=== PATIENT | female | born 1985 | race Caucasian/White ===

== ENCOUNTER 2024-11-28 09:22 | Outpatient (AMB) | payer OTHER, SELFPAY ==
[2024-11-28 09:27] VITALS: BP 120/82; BMI 39.7
--- NOTE | 2024-11-28 09:27 | MHC.OFFVIS ---
Vital Signs 11/28/24 09:27 Height 5 ft 3.39 in Weight 226 lb 13.69 oz BMI 39.7 BP 120/82 Blood Pressure Location Rt brachial Position Sitting Intake Visit Reasons: RA Intake Note: Pt presents today For RA. Allergies No Known Allergies Allergy (Verified 11/28/24 09:29) HPI HPI RA: Details: Aunt Joshua accompanies patient during visit. Dedee assist patient with dressing/ADLs. She is experiencing swelling in hands and feet. Pain in feet in the morning is severe that she falls if she does not stretch in bed. Hands are numb. No recent infections. MS 30 minutes - 1 hour. She has difficulty holding things. She has not seen a provider at the [facility] since I left the practice. She was on baricitinib with benefit. She has declined in function since being off of baricitinib. She continues to take Celebrex and duloxetine for fibromyalgia. She has not had further management of fibromyalgia pain control after I increased duloxetine dose from 30 mg to 60 mg. Review of Systems Const All systems reviewed & are unremarkable except as noted in HPI and below Physical Exam Vital Signs: Last Vital Signs BP 120/82 11/28/24 09:27 BMI result Body Mass Index 39.7 Const Other: General: Comfortable CVS: RRR Respiratory: clear to auscultation bilaterally. Good respiratory effort Skin: No lesions seen MSK: Tender to palpate MCPs, PIPs and IPs. Right wrist synovitis present with tenderness on palpation. Bilateral elbows and shoulders tender. Abduction of bilateral shoulders is 90 degrees with limited internal and external rotation. Tender to palpate bilateral ankles and MTPs. Synovitis of bilateral MTPs.. Office Procedures AMB Joint Injection/Aspiration Joint Injection/Aspiration Details: Right wrist Prep: site was prepped using aseptic technique Injected: 20 mg of, Kenalog, with 0.5 mL of and 1% plain lidocaine Procedure: The patient tolerated the procedure well. Postprocedure protocol was discussed with patient. Coding 20867 - Medium joint Procedure code (CPT) selection complete Office Meds lidocaine (PF) 10 mg/mL (1 %) injection solution Performing Provider: Weston Roberts MD [place] [facility] [place] [facility] Administered by: Weston Roberts MD on 11/28/24 12:20 Dose Route Admin Location Dispensed Lot Number Expiration Date [facility] No Experience 5 mg Infiltration 2 mL [id number] [facility] Kenalog 40 mg/mL suspension for injection Performing Provider: Weston Roberts MD Performing [place] [facility] [place] [facility] Administered by: Weston Roberts MD on 11/28/24 12:20 Dose Route Admin Location Dispensed Lot Number Expiration Date [facility] No Experience 20 mg intra-articular 1 mL AP [id number] [facility] Assessment & Plan Assessment & Plan (1) Rheumatoid arthritis: Comment: Rheumatoid arthritis is uncontrolled off of baricitinib. High disease activity. She has developed right wrist synovitis limiting her function with use of her right hand. She is requiring assistance of ADLs due to uncontrolled rheumatoid arthritis. She also has becomes symptomatic with carpal tunnel symptoms likely secondary to inflammatory arthritis causing median neuropathy. In the past her symptoms from carpal tunnel syndrome responded to cortisone injection into the carpal tunnel. She had better control of rheumatoid arthritis when she was on baricitinib. Rheumatology history: Diagnosed November 2019. Seropositive (RF 97.7 and anti CCP antibody >250). Methotrexate po 12/2019-01/2020 then switch to SC but discontinued due to hair loss. Failed treatment with HCQ 01/2020, 06/2021-08/2021. Prednisone and methylprednisolone cause nausea/vomiting/diarrhea. Depo-Medrol IM helps. Remicade 03/2020 DC after 1 induction dose due to anxiety. Failed Humira 04/2020-01/2021, Xeljanz 08/2021-07/2022. She had benefit on Baricitinib 08/2022-01/2024 lost to follow up. Leflunomide discontinued due to shortness of breath, diarrhea and chest pain. Code(s): M06.9 - Rheumatoid arthritis, unspecified Category: Medical Qualifiers: Rheumatoid arthritis location: multiple sites Rheumatoid factor presence: with rheumatoid factor Qualified Code(s): M05.79 - Rheumatoid arthritis with rheumatoid factor of multiple sites without organ or systems involvement Plan: Continue Celebrex 200 mg twice a day Labs for disease and drug monitoring on high-risk medication ordered. After lab results are back, she will need PA for baricitinib 2 mg daily She will be scheduled for nurse visit for Depo-Medrol IM 100 mg Patient received right wrist cortisone injection this visit X-rays ordered of bilateral hands and feet to evaluate for erosive inflammatory arthritis EMG of bilateral upper extremities to evaluate for carpal tunnel syndrome contributing to paraesthesia and hands I will order OT next visit to improve hand strength if she continues to have weakness Medical records reviewed from [facility] Return to clinic in 3 months (2) Fibromyalgia: Comment: On duloxetine. She is running out of her prescriptions. Code(s): M79.7 - Fibromyalgia Category: Medical Plan: I will refill prescriptions duloxetine. Defer future refills to PCP Orders: Orders Alanine Aminotransferase Today Z79.60 - senior living (current) use of unspecified immunomodulators and immunosuppressants Aspartate Amino Transferase Today Z79.60 - rodent exterminator (current) use of unspecified immunomodulators and immunosuppressants Complete Blood Count Auto Diff Today Z79.60 - rodent exterminator (current) use of unspecified immunomodulators and immunosuppressants Creatinine Today Z79.60 - rodent exterminator (current) use of unspecified immunomodulators and immunosuppressants Erythrocyte Sedimentation Rate Today Z79.899 - Other local intermodal truck driver (current) drug therapy Hepatitis B,C Profile Today M06.9 - Rheumatoid arthritis, unspecified T Spot TB Today M06.9 - Rheumatoid arthritis, unspecified Cyclic Citrullinated Peptide Today M06.9 - Rheumatoid arthritis, unspecified Rheumatoid Factor Today M06.9 - Rheumatoid arthritis, unspecified XR hand LT min 3V Today M06.9 - Rheumatoid arthritis, unspecified XR hand RT min 3V Today M06.9 - Rheumatoid arthritis, unspecified C Reactive Protein Today Z79.899 - Other local intermodal truck driver (current) drug therapy XR foot RT min 3V Today M06.9 - Rheumatoid arthritis, unspecified XR foot LT min 3V Today M06.9 - Rheumatoid arthritis, unspecified NE nerve conduction velocity Today M06.9 - Rheumatoid arthritis, unspecified AMB Joint Injection/Aspiration Today M06.9 - Rheumatoid arthritis, unspecified Coding Level of Care Code Est Pt Level 5 (64581) Complex EM visit Add On G2211 Diagnoses Rheumatoid arthritis involving multiple sites with positive rheumatoid factor M05.79 Rheumatoid arthritis location: multiple sites Rheumatoid factor presence: with rheumatoid factor Fibromyalgia M79.7 CPT Codes Coding - 78552 Medium joint: 06912 - Medium joint ([id number]) Time Spent (min) 40
--- OUTSIDE RECORDS SUMMARY | 2024-11-28 10:25 | XMS_ITS | Clinical Summary ---
Author Organization [facility] ity Address [address] [place] [address] Care Team Providers Care Step Down Specialist Name Role Phone Unavailable Primary Care Provider Unavailabl e Social History Tobacco Use Types Packs/Day Years Used Date Smoking Tobacco: Light Smoker Smokeless Tobacco: Never Comments Unknown Sex and Gender Information Value Date Recorded Sex Assigned at Not on file Legal Sex Female 3:09 PM EST Gender Identity Not on file Sexual Orientation Not on file Obstetrics History Last Filed Vital Signs Vital Sign Reading Time Taken Comments Blood Pressure 116/83 04/20/2022 10:21 AM EDT Pulse 103 04/20/2022 10:21 AM EDT Temperature - - Respiratory Rate - - Oxygen Saturation - - Inhaled Oxygen Concentration - - Weight 103 kg (226 lb) 10/04/2022 12:44 PM EST Height 158.8 cm (5' 2.5 ) 04/20/2022 10:21 AM ED T Body Mass Index 40.68 04/20/2022 10:21 AM EDT Plan of Treatment Health Maintenance Due Date Last Done Comments COVID-19 Vaccine (#1) 1990 DTaP,Tdap,and Td Vaccines (1 - Tdap) 2004 Hepatitis B Vaccines (1 of 3 - 19+ 3-dose series) 2004 Pneumococcal Vaccine: Pediatrics (0 to 5 Years) and At-Risk Patients (6 to 64 Years) (1 of 2 - PCV) 2004 Cervical Cancer Screening: Pap Smear 2006 Depression Screening 08/08/2022 HIV Screening 08/08/2022 Hepatitis C Screening 08/08/2022 Social Influencers of Health Screening 08/08/2022 Influenza Vaccine (#1) 2024 9, 09/25/2018, 06/06/2014, Additional history exists HIB Vaccines Aged Out No longer eligi ble based on patient's age to complete this topic HPV Vaccines Aged Out No longer eligi ble based on patient's age to complete this topic Hepatitis A Vaccines Aged Out No long er eligible based on patient's age to complete this topic IPV Vaccines Aged Out No longer eligi ble based on patient's age to complete this topic MMR Vaccines Aged Out No longer eligi ble based on patient's age to complete this topic Meningococcal ACWY Vaccine Aged Out N o longer eligible based on patient's age to complete this topic Meningococcal B Vacine Aged Out No lo nger eligible based on patient's age to complete this topic RSV Immunization Patients Under 20 months Aged Out No longer eligible based on patient's age to complete this topic Varicella Vaccines Aged Out No longer eligible based on patient's age to complete this topic
== END 2024-11-28 10:39 | disposition home or self-care (01) ==
LOC: HO.RHES 09:22
PROVIDERS: PCP Internal Medicine Rheumatology; Visit Provider Internal Medicine Rheumatology
DX: M05.79 Rheumatoid arthritis with rheumatoid factor of multiple sites without organ or systems involvement (principal); M79.7 Fibromyalgia; M65.941 Unspecified synovitis and tenosynovitis, right hand
CPT/HCPCS: 20605; 99215

== ENCOUNTER 2024-11-28 09:22 | Outpatient (REF) | payer OTHER, SELFPAY ==
--- OUTSIDE RECORDS SUMMARY | 2024-11-28 12:13 | XMS_ITS | Clinical Summary ---
Author Organization [facility] ity Address [address] [place] [address] Care Team Providers Care Electrical Prospecting Supervisor Name Role Phone Unavailable Primary Care Provider [...]
[2024-11-28 18:08] LABS: MANUAL DIFF FLAG NO
[2024-11-28 18:27] LABS: Rheumatoid Factor 91.3 IU/mL (<15.0)
[2024-11-28 18:29] LABS: Alanine Aminotransferase 51 U/L (0-31); Aspartate Amino Transferase 30 U/L (5-31); C Reactive Protein 1.08 mg/dL (< or = 0.50); Estimated Glomerular Filt Rate > 60
[2024-11-28 19:30] LABS: Basophils Percent Auto 0.4 % (0-2); Eosinophils Absolute Auto 0.5 X10*3/uL (0.0-0.4); Eosinophils Percent Auto 8.8 % (0-4); Hematocrit 40.8 % (37.0-47.0); Hemoglobin 13.1 g/dl (12.0-16.0); Imm Gran Abs Auto 0.01 X10*3/uL (0.00-0.03); Imm Gran Pct Auto 0.2 % (0.0-0.4); Lymphocytes Absolute Auto 1.5 X10*3/uL (1.2-4.9); Lymphocytes Percent Auto 29.7 % (20-40); Mean Corpuscular HGB Conc 32.1 g/dl (31.0-35.0); Mean Corpuscular Hemoglobin 21.9 pg (27.0-33.0); Mean Corpuscular Volume 68.2 fL (80.0-98.0); Mean Platelet Volume 10.9 fL (9.4-12.3); Monocytes Absolute Auto 0.4 X10*3/uL (0.1-1.2); Monocytes Percent Auto 7.2 % (2-11); Neutrophils Absolute Auto 2.7 x10*3/uL (2.0-8.3); Neutrophils Percent Auto 53.7 % (45-73); Platelet Count 278 X10*3/uL (160-400); Red Blood Count 5.98 X10*6/uL (4.20-5.50); Red Cell Distribution Width 16.5 % (11.0-16.0); White Blood Count 5.1 X10*3/uL (4.8-10.8)
[2024-11-28 19:32] LABS: Erythrocyte Sedimentation Rate 10 MM/HR (0-20)
[2024-11-29 08:12] LABS: HBS Num1 110.63 mIU/mL (0-7.99); HBc Num1 0.08 S/CO (0.00-0.79); HBsAGNum1 0.27 S/CO (0.00-0.99); Hepatitis B Core Antibody Nonreactive (Nonreactive); Hepatitis B Surface Antigen Negative (Negative); ~HepC Num1 0.09 S/CO (0.00-0.79); ~Hepatitis B Surface Antibody REACTIVE (Nonreactive); ~Hepatitis C Antibody Nonreactive (Nonreactive)
[2024-11-30 19:27] LABS: Cyclic Citrullinated Peptide >250 UNITS
[2024-12-01 00:24] LABS: TS Negative Control Passed; TS Panel A 0; TS Panel B 2; TS Positive Control Passed; TSpotTB Negative (Negative)
== END 2024-11-28 09:23 | disposition home or self-care (01) ==
LOC: HO.HKASLDS 09:22
PROVIDERS: PCP Internal Medicine Rheumatology; Visit Provider Internal Medicine Rheumatology
DX: M25.531 Pain in right wrist (principal); M65.831 Other synovitis and tenosynovitis, right forearm; M06.9 Rheumatoid arthritis, unspecified; Z79.60 Long term (current) use of unspecified immunomodulators and immunosuppressants; Z79.899 Other long term (current) drug therapy
CPT/HCPCS: 20605; 36415; 82565; 84450; 84460; 85025; 85652; 86140; 86200; 86431; 86481; 86704; 86706; 86803; 87340; 99212; J2003; J3300

== ENCOUNTER 2025-03-27 13:16 | Outpatient (AMB) | payer OTHER, SELFPAY ==
--- NOTE | 2025-03-27 13:17 | A.OFFVIS_ITS ---
Vital Signs 03/27/25 13:18 Height 5 ft 3.9 in Weight 129 lb BMI 22.2 BP 110/80 Blood Pressure Location Lt brachial Position Sitting Pulse 101 H Pulse Oximetry (%) 97 Oxygen Delivery Method Room Air Intake Visit Reasons: RA Intake Note: Pt presents today For Fibromyalgia. Accompanied by: Self / Same As Patient Allergies No Known Allergies Allergy (Verified 03/27/25 13:18) HPI HPI RA: Details: She has some days where she experiences pain but overall it has improved. She is able to wear the wrist braces at night. There is 50% reduction in hand paraesthesia. Some day she has worsening hand paraesthesia with wearing wrist braces. Physical Exam Vital Signs: Last Vital Signs Pulse 101 H 03/27/25 13:18 BP 110/80 03/27/25 13:18 Pulse Ox 97 03/27/25 13:18 Oxygen Delivery Method Room Air 03/27/25 13:18 BMI result Body Mass Index 22.2 Const Other: General: Comfortable CVS: RRR Respiratory: clear to auscultation bilaterally. Good respiratory effort Skin: No lesions seen MSK: Tender right 2nd MCP with chronic synovial thickening present. Tender left MCPs and PIPs. Tender bilateral shoulders. Normal range of motion of upper extremities and lower extremities. No ankle or MTP tenderness. Assessment & Plan Assessment & Plan (1) Rheumatoid arthritis: Comment: Rheumatoid arthritis is controlled on baricitinib. Rheumatology history: Diagnosed November 2019. Seropositive (RF 97.7 and anti CCP antibody >250). Methotrexate po 12/2019-01/2020 then switch to SC but discontinued due to hair loss. Failed treatment with HCQ 01/2020, 06/2021- 08/2021. Prednisone and methylprednisolone cause nausea/vomiting/diarrhea. Depo-Medrol IM helps. Remicade 03/2020 DC after 1 induction dose due to anxiety. Failed Humira 04/2020-01/2021, Xeljanz 08/2021-07/2022. She had benefit on Baricitinib 08/2022-01/2024 lost to follow up then restarted 11/2024-. Leflunomide discontinued due to shortness of breath, diarrhea and chest pain. Code(s): M06.9 - Rheumatoid arthritis, unspecified Category: Medical Qualifiers: Rheumatoid arthritis location: multiple sites Rheumatoid factor presence: with rheumatoid factor Qualified Code(s): M05.79 - Rheumatoid arthritis with rheumatoid factor of multiple sites without organ or systems involvement Plan: Continue Celebrex 200 mg twice a day. I will reduce dose next visit Labs for disease and drug monitoring on high-risk medication ordered. Continue baricitinib 2 mg daily X-rays ordered of bilateral hands and feet to evaluate for erosive inflammatory arthritis EMG of bilateral upper extremities to evaluate for carpal tunnel syndrome contributing to paraesthesia and hands Return to clinic in 3 months Medications: Refilled baricitinib (Olumiant) 2 mg PO DAILY 30 tabs 2RF M05.79 - Rheumatoid arthritis with rheumatoid factor of multiple sites without organ or systems involvement Coding Level of Care Code Est Pt Level 4 (51983) Complex EM visit Add On G2211 Diagnoses Rheumatoid arthritis involving multiple sites with positive rheumatoid factor M05.79 Rheumatoid arthritis location: multiple sites Rheumatoid factor presence: with rheumatoid factor
[2025-03-27 13:18] VITALS: BP 110/80; PULSE 101; O2SAT 97; BMI 22.2
--- OUTSIDE RECORDS SUMMARY | 2025-03-27 13:47 | XMS_ITS | Clinical Summary ---
Author Organization [facility] ity Address [address] [place] [address] Care Team Providers Care Occupational Therapy Technician Name Role Phone Unavailable Primary Care Provider [...] 5 Years) and At-Risk Patients (6 to 49 Years) (1 of 2 - PCV) 2004 Cervical Cancer Screening: Pap Smear 2006 HIV Screening 08/08/2022 Hepatitis C Screening 08/08/2022 Social Influencers of Health Screening 08/08/2022 Depression Screening 08/29/2024 Influenza Vaccine (#1) 2025 9, 09/25/2018, 06/06/2014, Additional history exists HIB [...] age to complete this topic Meningococcal B Vaccine Aged Out No l onger eligible based on patient's age to complete this topic RSV Immunization Patients Under 20 months Aged Out No longer eligible based on patient's age to complete this topic Varicella Vaccines Aged Out No longer eligible based on patient's age to complete this topic
== END 2025-03-27 13:54 | disposition home or self-care (01) ==
LOC: HO.RHES 13:16
PROVIDERS: PCP Internal Medicine Rheumatology; Visit Provider Internal Medicine Rheumatology
DX: M05.79 Rheumatoid arthritis with rheumatoid factor of multiple sites without organ or systems involvement (principal)
CPT/HCPCS: 99214; G2211

== ENCOUNTER 2025-03-27 13:16 | Outpatient (REF) | payer OTHER, SELFPAY ==
[2025-03-27 18:05] LABS: Baso%MD 0.5 %; Eos%MD 7.2 %; Hematocrit 43.3 % (37.0-47.0); Hemoglobin 13.3 g/dl (12.0-16.0); IG%MD 0.3 %; Lymph%MD 39.2 %; Mean Corpuscular HGB Conc 30.7 g/dl (31.0-35.0); Mean Corpuscular Hemoglobin 21.7 pg (27.0-33.0); Mean Corpuscular Volume 70.8 fL (80.0-98.0); Mono%MD 7.0 %; NRBC Abs Auto 0.000 X10*3/uL (0.0-0.012); NRBC Pct Auto 0.0 /100WBC (0.0-0.2); Neut%MD 45.8 %; Platelet Count 347 X10*3/uL (160-400); Red Blood Count 6.12 X10*6/uL (4.20-5.50); White Blood Count 6.3 X10*3/uL (4.8-10.8)
[2025-03-27 18:34] LABS: Alanine Aminotransferase 7 U/L (0-31); Aspartate Amino Transferase 20 U/L (5-31); Estimated Glomerular Filt Rate > 60
[2025-03-27 19:00] LABS: Atypical Lymph Absolute Manual 0.2 x10*3/uL; Atypical Lymphs Percent Manual 3 % (0-6); Band Neutrophils Percent 1 % (3-5); Burr Cells 3+ (>5) /OIF; Eosinophils Absolute Manual 0.3 X10*3/uL (0.0-0.4); Eosinophils Percent Manual 5 % (0-4); Lymphocytes Absolute Manual 2.0 X10*3/uL (1.2-4.9); Lymphocytes Percent Manual 32 % (20-40); Monocytes Absolute Manual 0.3 X10*3/uL (0.1-1.2); Monocytes Percent Manual 4 % (2-11); Neutrophils Absolute Manual 3.5 X10*3/uL (2.0-8.3); Neutrophils Percent Manual 55 % (45-73); Ovalocytes 1+ (5-14) /OIF; RBC Morphology NOTED
[2025-03-27 19:01] LABS: Large Platelet PRESENT; Schistocytes 1+ (0-2) /OIF
== END 2025-03-27 13:17 | disposition home or self-care (01) ==
LOC: HO.HKASLDS 13:16
PROVIDERS: PCP Internal Medicine Rheumatology; Visit Provider Internal Medicine Rheumatology
DX: M05.79 Rheumatoid arthritis with rheumatoid factor of multiple sites without organ or systems involvement (principal); M79.7 Fibromyalgia; Z79.899 Other long term (current) drug therapy; R20.2 Paresthesia of skin
CPT/HCPCS: 36415; 82565; 84450; 84460; 85007; 85027; 85652; 86140; 99212

== ENCOUNTER 2025-05-28 11:14 | Outpatient (REF) | payer OTHER, SELFPAY ==
--- NOTE | ~2025-05-28 | XR_ITS ---
Exam: XR HAND 3 VIEWS BILATERAL, bilateral hand x-rays TECHNIQUE: AP, lateral, and oblique views upper extremity, bilateral hands INDICATION: M06.9 - Rheumatoid arthritis, unspecified COMPARISON: None available. FINDINGS: RIGHT HAND: Joint spaces are preserved. No osteophytes are identified. There are no erosive changes. Bone mineral density is within normal limits. There is mild fusiform expansion of the middle diaphysis of the fifth metacarpal but could be related to a healed fracture. LEFT HAND: Joint spaces are preserved. No osteophytes are identified. There are no erosive changes. Bone mineral density is within normal limits. XR/XR Hand Bilat min 3v IMPRESSION: Right hand: Unremarkable Left hand: Unremarkable Electronically signed by: Trung Hussein MD 05/28/2025 01:16 PM EDT
--- NOTE | ~2025-05-28 | XR_ITS ---
Exam: XR FOOT 3 OR MORE VIEWS BILATERAL, bilateral foot x-rays TECHNIQUE: AP, OBL and lateral views lower extremity, bilateral feet INDICATION: M06.9 - Rheumatoid arthritis, unspecified COMPARISON: None available. FINDINGS: RIGHT FOOT: There is normal bone mineral density. There is no joint space narrowing. There are no osteophytes. No erosions are identified. LEFT FOOT: There is normal bone mineral density. There is no joint space narrowing. There are no osteophytes. No erosions are identified. XR/XR Foot Acosta 3V IMPRESSION: Right foot: Unremarkable Left foot: Unremarkable Electronically signed by: Trung Hussein MD 05/28/2025 01:19 PM EDT RP
--- NOTE | ~2025-05-28 | XR_ITS ---
EXAMINATION: XR KNEE 1-2 VIEWS RIGHT HISTORY: M17.0 - Bilateral primary osteoarthritis of knee COMPARISON: There are no prior studies available for comparison. FINDINGS: AP and lateral views of the right knee are submitted. Osseous mineralization is normal. There is no fracture or dislocation. The joint spaces are preserved. The soft tissues are unremarkable. There is no joint effusion. XR/XR knee RT 2V IMPRESSION: Unremarkable examination of the right knee. Electronically signed by: Raheem Pereyra MD 05/28/2025 12:50 PM EDT
--- OUTSIDE RECORDS SUMMARY | 2025-05-28 12:40 | XMS_ITS | Clinical Summary ---
Author Organization [facility] ity Address [address] [place] [address] Care Team Providers Care Garment Examiner Name Role Phone Unavailable Primary Care Provider [...] Health Maintenance Due Date Last Done Comments DTaP,Tdap,and Td Vaccines (1 - Tdap) 2004 Hepatitis B Vaccines (1 of 3 - 19+ 3-dose series) 2004 Pneumococcal Vaccine: Pediatrics (0 to 5 Years) and At-Risk Patients (6 to 49 Years) (1 of 2 - PCV) 2004 Cervical Cancer Screening: Pap Smear 2006 HPV Vaccines (1 - 3-dose SCDM series) 2012 HIV Screening 08/08/2022 Hepatitis C Screening 08/08/2022 Social Influencers of Health Screening 08/08/2022 Depression Screening 08/29/2024 COVID-19 Vaccine (1 - 2024-25 season) 2025 Influenza Vaccine (#1) 2025 , 09/25/2018, 06/06/2014, Additional history exists RSV Immunization Adult Patients (1 - 1-dose 75+ series) 2060 HIB Vaccines Aged Out No longer eligi [...]
== END 2025-05-28 11:15 | disposition home or self-care (01) ==
LOC: HO.XRAY 11:14
PROVIDERS: Visit Provider Internal Medicine Rheumatology
DX: M25.561 Pain in right knee (principal); M06.9 Rheumatoid arthritis, unspecified
CPT/HCPCS: 73130; 73560; 73630

== ENCOUNTER → 2025-05-28 11:22 | Outpatient (BNV) | payer OTHER, SELFPAY | PROVIDERS: Visit Provider Radiology Diagnostic Radiology | DX: M05.79 Rheumatoid arthritis with rheumatoid factor of multiple sites without organ or systems involvement (principal) | CPT/HCPCS: 73130; 73560; 73630 ==

== ENCOUNTER 2025-07-09 10:41 | Outpatient (REF) | payer OTHER, SELFPAY ==
[2025-07-09 17:37] LABS: MANUAL DIFF FLAG NO
[2025-07-09 17:50] LABS: Hematocrit 42.2 % (37.0-47.0); Hemoglobin 12.9 g/dl (12.0-16.0); Imm Gran Abs Auto 0.03 X10*3/uL (0.00-0.03); Imm Gran Pct Auto 0.3 % (0.0-0.4); Lymphocytes Absolute Auto 2.0 X10*3/uL (1.2-4.9); Mean Corpuscular HGB Conc 30.6 g/dl (31.0-35.0); Mean Corpuscular Hemoglobin 21.4 pg (27.0-33.0); Mean Corpuscular Volume 70.0 fL (80.0-98.0); NRBC Abs Auto 0.000 X10*3/uL (0.0-0.012); NRBC Pct Auto 0.0 /100WBC (0.0-0.2); Platelet Count 307 X10*3/uL (160-400); Red Blood Count 6.03 X10*6/uL (4.20-5.50); White Blood Count 10.6 X10*3/uL (4.8-10.8)
[2025-07-09 18:16] LABS: Alanine Aminotransferase 9 U/L (0-31); Albumin Level 4.4 g/dL (3.5-5.0); Alkaline Phosphatase 89 U/L (39-117); Aspartate Amino Transferase 19 U/L (5-31); Estimated Glomerular Filt Rate > 60; Total Protein 7.2 g/dL (6.5-8.0)
[2025-07-09 18:30] LABS: Vitamin B12 529 pg/mL (200-900)
== END 2025-07-09 10:42 | disposition home or self-care (01) ==
LOC: HO.HKASLDS 10:41
PROVIDERS: PCP Internal Medicine Rheumatology; Visit Provider Internal Medicine Rheumatology
DX: M05.79 Rheumatoid arthritis with rheumatoid factor of multiple sites without organ or systems involvement (principal); Z79.899 Other long term (current) drug therapy; Z79.1 Long term (current) use of non-steroidal anti-inflammatories (NSAID)
CPT/HCPCS: 36415; 80076; 82565; 82607; 83036; 84443; 85025; 85652; 86140; 96372; 99212; J1010

== ENCOUNTER 2025-07-09 10:41 | Outpatient (AMB) | payer OTHER, SELFPAY ==
--- NOTE | 2025-07-09 10:46 | MHC.OFFVIS ---
Vital Signs 07/09/25 10:49 Height 5 ft 3.9 in Weight 235 lb 0.204 oz BMI 40.5 BP 120/70 Blood Pressure Location Rt brachial Position Sitting Pulse 99 Pulse Source Pulse Oximeter Pulse Oximetry (%) 97 Oxygen Delivery Method Room Air Intake Visit Reasons: 3 months Intake Note: Pt presents today For Fibromyalgia. Accompanied by: Self / Same As Patient Allergies No Known Allergies Allergy (Verified 03/27/25 13:18) HPI HPI 3 months: Details: She fell recently landing on her right side. She was walking on the side walk and walked in a way that her right 1st toe pain radiated up causing her to collapse due to pain. She fell twice due to paresthesia in feet. Exacerbated with prolonged walk and driving. MS 30 minutes. Physical Exam Vital Signs: Last Vital Signs Pulse 99 07/09/25 10:49 BP 120/70 07/09/25 10:49 Pulse Ox 97 07/09/25 10:49 Oxygen Delivery Method Room Air 07/09/25 10:49 BMI result Body Mass Index 40.5 Const Other: General: Comfortable CVS: RRR Respiratory: clear to auscultation bilaterally. Good respiratory effort Skin: No lesions seen MSK: Tender bilateral shoulders. Normal range of motion of upper extremities and lower extremities. She has bilateral tenderness of MTPs with synovitis present. She has mild bilateral hallux valgus deformity Office Meds methylprednisolone acetate 80 mg/mL suspension for injection Performing Provider: Weston Roberts MD Performing Location: [facility] Administered by: Dallin Fuentes RN on 07/09/25 11:34 Dose Route Admin Location Dispensed Lot Number Expiration Date [facility] Res[employer] 80 mg IM left deltoid 1 mL [id number] 08/28/26 [address]-4 [employer] Total Dispensed Waste 1 mL 0 % Assessment & Plan Assessment & Plan (1) Rheumatoid arthritis: Comment: Rheumatoid arthritis is not controlled on monotherapy with baricitinib. She has developed synovitis of bilateral MTPs. Also has paraesthesia of bilateral feet contributing to her falls. I will workup paraesthesia with labs. If labs are normal, I will add on bilateral lower extremity EMGs to her current study. We discussed next steps with starting hydroxychloroquine. She has tolerated hydroxychloroquine in the past. Discussed side effects, benefits and drug monitoring. Rheumatology history: Diagnosed November 2019. Seropositive (RF 97.7 and anti CCP antibody >250). Methotrexate po 12/2019-01/2020 then switch to SC but discontinued due to hair loss. Failed treatment with HCQ 01/2020, 06/2021-08/2021. Prednisone and methylprednisolone cause nausea/vomiting/diarrhea. Depo-Medrol IM helps. Remicade 03/2020 DC after 1 induction dose due to anxiety. Failed Humira 04/2020-01/2021, Xeljanz 08/2021-07/2022. She had benefit on Baricitinib 08/2022-01/2024 lost to follow up then restarted 11/2024-. Leflunomide discontinued due to shortness of breath, diarrhea and chest pain. Code(s): M06.9 - Rheumatoid arthritis, unspecified Category: Medical Qualifiers: Rheumatoid arthritis location: multiple sites Rheumatoid factor presence: with rheumatoid factor Qualified Code(s): M05.79 - Rheumatoid arthritis with rheumatoid factor of multiple sites without organ or systems involvement Plan: Continue Celebrex 200 mg twice a day. Labs for disease and drug monitoring on high-risk medication ordered. Continue baricitinib 2 mg daily Start hydroxychloroquine 400 mg daily. She has an eye exam today. I have asked her to ensure that she has ocular baseline screening for hydroxychloroquine monitoring. EMG of bilateral upper extremities to evaluate for carpal tunnel syndrome contributing to paraesthesia and hands last visit. She was given phone number for central scheduling to schedule appointment. Labs ordered for workup of metabolic neuropathy. If negative, I will add on bilaterally EMGs of lower extremities to her current order. Continue to wear wrist braces at night Depo-Medrol 80 IM given this visit Return to clinic in 3 months Orders: Orders Aspartate Amino Transferase Today Z79.899 - Other buttermaker (current) drug therapy Creatinine Today Z79.899 - Other buttermaker (current) drug therapy Erythrocyte Sedimentation Rate Today Z79.899 - Other shelter (current) drug therapy Vitamin B12 Today R20.2 - Paresthesia of skin TSH reflex Free T4 Today R20.2 - Paresthesia of skin AMB Methylprednisolone Acetate Injection Today M05.79 - Rheumatoid arthritis with rheumatoid factor of multiple sites without organ or systems involvement Complete Blood Count Auto Diff Today Z79.899 - Other buttermaker (current) drug therapy Alanine Aminotransferase Today Z79.899 - Other buttermaker (current) drug therapy C Reactive Protein Today Z79.899 - Other shelter (current) drug therapy Hemoglobin A1c Today R20.2 - Paresthesia of skin PT Evaluation and Treatment Today M05.79 - Rheumatoid arthritis with rheumatoid factor of multiple sites without organ or systems involvement Medications: New hydroxychloroquine (Plaquenil) 400 mg (2 x 200 mg) PO DAILY 180 tabs 1RF 90 days leg brace (Knee Support Brace) As directed Right knee hinged brace Rx: rheumatoid arthritis 1 ea 0RF Refilled baricitinib (Olumiant) 2 mg PO DAILY 30 tabs 2RF M05.79 - Rheumatoid arthritis with rheumatoid factor of multiple sites without organ or systems involvement celecoxib Take with food 200 mg PO BID 180 caps 1RF Coding Level of Care Code Est Pt Level 4 (51355) Complex EM visit Add On G2211 Diagnoses Rheumatoid arthritis involving multiple sites with positive rheumatoid factor M05.79 Rheumatoid arthritis location: multiple sites Rheumatoid factor presence: with rheumatoid factor
[2025-07-09 10:49] VITALS: BP 120/70; PULSE 99; O2SAT 97; BMI 40.5
--- OUTSIDE RECORDS SUMMARY | 2025-07-09 12:20 | XMS_ITS | Clinical Summary ---
Author Organization [facility] ity Address [address] [place] [address] Care Team Providers Care Towel Folder Name Role Phone Unavailable Primary Care Provider [...] Depression Screening 08/29/2024 COVID-19 Vaccine (1 - 2025-26 season) 2025 Influenza Vaccine (#1) 2025 , [...]
== END 2025-07-09 11:33 | disposition home or self-care (01) ==
LOC: HO.RHES 10:41
PROVIDERS: PCP Internal Medicine Rheumatology; Visit Provider Internal Medicine Rheumatology
DX: M05.79 Rheumatoid arthritis with rheumatoid factor of multiple sites without organ or systems involvement (principal)
CPT/HCPCS: 99214; G2211